=== PATIENT | male | born 1955 | race Caucasian/White ===

== ENCOUNTER → 2016-06-25 | Outpatient (CLI) | payer OTHER ==
[~2016-06-25] MED LIST: AMLODIPINE BESYL5 MG PO; BENAZEPRIL HCL40 MG PO; CALCIUM 600 +1 EAC1 PO; CASODEX50 MG PO; CLONIDINE HCL0.1 MG PO; FISH OIL 1,0001 EAC7 PO; FLOMAX0.4 MG PO; GLIPIZIDE10 MG PO; LO-DOSE ASPIRIN81 M2 PO; PRECOSE50 MG PO; SIMVASTATIN20 MG PO; TRADJENTA5 MG PO; TYLENOL WITH C1 EACH PO
[2016-06-25 09:22] LABS: HEMATOCRIT 24.6 % (38.0-50.0); MCH 31.5 PG (29.0-34.0); MCHC 34.1 G/DL (30.0-36.0); MCV 92.1 FL (86-99); MEAN PLAT.VOLUME 11.3 uM^3 (9.0-12.4); PLATELET COUNT 179 K/uL (156-360); RBC DIS.WIDTH-CV 16.6 % (11.8-14.6); RBC DIS.WIDTH-SD 52.7 % (39-53); RED BLOOD COUNT 2.67 M/uL (4.00-5.50)
[2016-06-25 09:23] LABS: WHITE BLOOD COUNT 4.2 K/uL (4.1-10.2)
[2016-06-25 09:24] LABS: EOSINOPHIL (%) 0.7 % (0-5); IMMATURE GRANULOCYTE COUNT 0.4 K/uL; LYMPHOCYTE COUNT 1.4 K/uL (1.0-2.8); MONOCYTE (%) 7.9 % (3-12); MONOCYTE COUNT 0.3 K/uL (0-0.8); NEUTROPHIL (%) 56.3 % (45-76); NEUTROPHIL COUNT 2.4 K/uL (1.8-6.4)
[2016-06-25 09:33] LABS: INTER. NORMALIZED RATIO 1.1; PROTHROMBIN TIME 10.7 (9.2-11.2); PTT 26.6 (25-32)
[2016-06-25 10:04] LABS: ANISOCYTOSIS 1+; HYPOCHROMASIA 1+; OVALOCYTES OCC; PLAT.SUFFICIENCY ADEQUATE; POLYCHROMASIA OCC; SCHISTOCYTES RARE; SMUDGE CELLS 0; SPHEROCYTES OCC; TEAR DROP CELLS 1+; USER ID SDF
[2016-07-04 08:07] LABS: Flow Clinical Information NOT PROVIDED; Flow Spec Viability 95; Flow Specimen Type BONE MARROW
[2016-07-04 08:08] LABS: Flow Number of Markers 22
== END | disposition home or self-care (01) ==
LOC: OPR 05-24 09:00 → EDSTATUS 09:00 → OPR 09:00
PROVIDERS: Internal Medicine Medical Oncology
PROC: 07DR3ZX Extraction of Iliac Bone Marrow, Percutaneous Approach, Diagnostic (ICD-10-PCS; principal; 2016-06-25)
DX: D64.9 Anemia, unspecified (principal); C61 Malignant neoplasm of prostate; Z92.3 Personal history of irradiation; Z79.82 Long term (current) use of aspirin; Z79.84 Long term (current) use of oral hypoglycemic drugs; Z87.891 Personal history of nicotine dependence; R60.0 Localized edema
CPT/HCPCS: 77012; 85025; 85610; 85730; 85999; 88184 90; 88185 90; 88189 90; 88291 90; J3010

== ENCOUNTER → 2016-11-21 | Outpatient (CLI) | payer OTHER ==
[~2016-11-21] VITALS: Ht 190.5 cm; Wt 106.8 kg
[~2016-11-21] MED LIST changes: +AMLODIPINE BESY10 MG PO; +LEVEMIR100 UNIT/2 SC
[2016-11-21 09:15] LABS: EOSINOPHIL (%) 0.6 % (0-5); HEMATOCRIT 24.7 % (38.0-50.0); IMMATURE GRANULOCYTE (%) 0.9 % (0.0-0.7); INSTRUMENT ABS NEUTROPHIL CT 1.8 K/uL; LYMPHOCYTE COUNT 1.1 K/uL (1.0-2.8); MCH 31.7 PG (29.0-34.0); MCHC 33.2 G/DL (30.0-36.0); MCV 95.4 FL (86-99); MEAN PLAT.VOLUME 11.4 uM^3 (9.0-12.4); MONOCYTE (%) 10.7 % (3-12); MONOCYTE COUNT 0.4 K/uL (0-0.8); NEUTROPHIL (%) 53.8 % (45-76); NEUTROPHIL COUNT 1.8 K/uL (1.8-6.4); PLATELET COUNT 204 K/uL (156-360); RBC DIS.WIDTH-CV 16.5 % (11.8-14.6); RBC DIS.WIDTH-SD 57.3 % (39-53); RED BLOOD COUNT 2.59 M/uL (4.00-5.50); WHITE BLOOD COUNT 3.4 K/uL (4.1-10.2)
[2016-11-21 09:24] LABS: INTER. NORMALIZED RATIO 1.1; PROTHROMBIN TIME 10.8 (9.2-11.2); PTT 27.7 (25-32)
[2016-11-21 09:42] LABS: POINT-OF-CARE METER ID UU14174212
[2016-11-25 10:12] LABS: Flow Number of Markers 22 (()); Flow Spec Viability 90 % (()); Flow Specimen Type BONE MARROW (())
== END | disposition home or self-care (01) ==
LOC: OPR 08:35 → EDSTATUS 09:00
PROVIDERS: Internal Medicine Medical Oncology
DX: D46.20 Refractory anemia with excess of blasts, unspecified (principal); D63.8 Anemia in other chronic diseases classified elsewhere; D64.9 Anemia, unspecified; C61 Malignant neoplasm of prostate; E78.5 Hyperlipidemia, unspecified; I10 Essential (primary) hypertension; E66.9 Obesity, unspecified; R16.1 Splenomegaly, not elsewhere classified; E11.9 Type 2 diabetes mellitus without complications; Z79.82 Long term (current) use of aspirin; Z87.891 Personal history of nicotine dependence; Z79.84 Long term (current) use of oral hypoglycemic drugs; Z79.4 Long term (current) use of insulin
CPT/HCPCS: 77012; 82948; 85025; 85610; 85730; 85999; 88184 90; 88185 90; 88189 90; 88271 90; 88275 90; 88291 90; J3010

== ENCOUNTER → 2017-03-07 | Outpatient (CLI) | payer OTHER ==
[~2017-03-07] MED LIST changes: +FOLIC ACID0.4 MG PO; +[UNRECOGNIZED DRUG - OTHER] IV
== END | disposition home or self-care (01) ==
LOC: CDC 08:11
DX: N13.30 Unspecified hydronephrosis (principal); I45.10 Unspecified right bundle-branch block
CPT/HCPCS: 93000

== ENCOUNTER → 2017-06-11 | Outpatient (CLI) | payer OTHER ==
[~2017-06-11] VITALS: Ht 190.5 cm; Wt 109.0 kg
[~2017-06-11] MED LIST changes: +OMEPRAZOLE20 MG PO; +PREDNISONE1 MG PO
[2017-06-11 16:04] VITALS: BP 162/70
[2017-06-11 16:29] VITALS: BP 157/70
[2017-06-11 16:42] VITALS: BP 141/61
[2017-06-11 16:46] VITALS: BP 149/63
[2017-06-11 17:50] VITALS: BP 134/62
[2017-06-11 18:33] VITALS: BP 140/62
== END | disposition home or self-care (01) ==
LOC: IVINF 15:43
DX: D46.20 Refractory anemia with excess of blasts, unspecified (principal)
CPT/HCPCS: 36430; 86920; 86999; P9016

== ENCOUNTER → 2017-06-27 | Outpatient (CLI) | payer OTHER ==
[~2017-06-27] MED LIST changes: +GLIPIZIDE XL10 MG PO; +PREDNISONE10 MG PO
[2017-06-27 10:57] LABS: BASOPHIL (%) 0.4 % (0-1); EOSINOPHIL (%) 0.4 % (0-5); HEMATOCRIT 17.9 % (38.0-50.0); IMMATURE GRANULOCYTE (%) 2.2 % (0.0-0.7); LYMPHOCYTE COUNT 0.8 K/uL (1.0-2.8); MCH 33.2 PG (29.0-34.0); MCHC 34.6 G/DL (30.0-36.0); MCV 95.7 FL (86-99); MONOCYTE (%) 15.2 % (3-12); MONOCYTE COUNT 0.4 K/uL (0-0.8); NEUTROPHIL (%) 51.8 % (45-76); NEUTROPHIL COUNT 1.4 K/uL (1.8-6.4); PLATELET COUNT 92 K/uL (156-360); RBC DIS.WIDTH-CV 15.9 % (11.8-14.6); RBC DIS.WIDTH-SD 55.7 % (39-53); RED BLOOD COUNT 1.87 M/uL (4.00-5.50); WHITE BLOOD COUNT 2.8 K/uL (4.1-10.2)
[2017-06-27 10:59] LABS: HEMOGLOBIN 6.2 G/DL (12.5-16.6)
[2017-06-29 17:17] LABS: NUMBER OF MARKERS 22; SPECIMEN TYPE BONE MARROW; SPECIMEN VIABILITY 94
== END | disposition home or self-care (01) ==
LOC: OPR 09:39 → EDSTATUS 10:00 → OPR 10:00
PROVIDERS: Internal Medicine Medical Oncology
DX: D59.5 Paroxysmal nocturnal hemoglobinuria [Marchiafava-Micheli] (principal); C61 Malignant neoplasm of prostate; D46.20 Refractory anemia with excess of blasts, unspecified; I10 Essential (primary) hypertension; E78.5 Hyperlipidemia, unspecified; E11.9 Type 2 diabetes mellitus without complications; Z79.4 Long term (current) use of insulin; Z79.82 Long term (current) use of aspirin
CPT/HCPCS: 77012; 82948; 85025 91; J3010

== ENCOUNTER 2017-07-05 16:26 | Emergency (ER) | payer OTHER ==
[~2017-07-05] VITALS: Ht 190.5 cm; Wt 107.2 kg
[2017-07-05 17:48] LABS: HEMATOCRIT 19.6 % (38.0-50.0); MCHC 33.7 G/DL (30.0-36.0); PLATELET COUNT 114 K/uL (156-360); RBC DIS.WIDTH-CV 14.8 % (11.8-14.6); RBC DIS.WIDTH-SD 49.1 % (39-53); RED BLOOD COUNT 2.13 M/uL (4.00-5.50); WHITE BLOOD COUNT 2.6 K/uL (4.1-10.2)
[2017-07-05 17:49] LABS: HEMOGLOBIN 6.6 G/DL (12.5-16.6)
[2017-07-05 17:52] LABS: CHLORIDE 104 mEq/L (99-109); SODIUM 136 mEq/L (136-147)
[2017-07-05 17:53] LABS: GLUCOSE 118 mg/dL (70-99)
[2017-07-05 17:57] LABS: CREATININE 1.5 mg/dL (0.6-1.3); GFR ESTIMATE (CALCULATED) 50 mL/min/ (58.99-99999)
[2017-07-05 17:58] LABS: UREA NITROGEN (BUN) 13 mg/dL (9-23)
[2017-07-05 18:23] LABS: ABS NEUTROPHIL COUNT 1.5; ANISOCYTOSIS 1+; EOSINOPHIL ABS CT 0; LYMPHOCYTES 34.2 % (15.0-45.0); MONOCYTES 8.1 % (0-9.0); PLAT.SUFFICIENCY DECREASED; POIKILOCYTOSIS 1+; SEG.NEUTROPHILS 57.7 % (46.0-76.0)
[2017-07-05 18:54] LABS: APPEARANCE CLEAR ((CLEAR)); BILIRUBIN NEGATIVE; BLOOD SMALL; COLOR YELLOW ((YELLOW)); GLUCOSE (STRIP) NEGATIVE; KETONES NEGATIVE; LEUKOCYTES NEGATIVE; NITRITE NEGATIVE; PROTEIN (STRIP) NEGATIVE; UROBILINOGEN 0.2 MG/DL (0.2-1.0)
[2017-07-05 18:59] LABS: BACTERIA RARE /HPF; EPITHELIAL CELLS RARE /HPF; MUCUS TRACE /LPF; RED BLOOD CELLS 0-5 /HPF (0-5); UCUL ADDED? NO; WHITE BLOOD CELLS 0-5 /HPF (0-5)
[2017-07-05] MEDS ORDERED: ZITHROMAX Z-PA250 MG PO (20:49)
[2017-07-05] MEDS ORDERED: ZITHROMAX250 MG PO (20:50)
[2017-07-05 21:36] VITALS: BP 114/52
[2017-07-05 21:47] VITALS: BP 116/47
[2017-07-05 22:30] VITALS: BP 103/59
[2017-07-05 23:44] VITALS: BP 133/68
[2017-07-05 23:55] VITALS: BP 133/68
== END 2017-07-06 | disposition home or self-care (01) ==
LOC: EME 16:26
PROVIDERS: Emergency Medicine
PROC: 30233N1 Transfusion of Nonautologous Red Blood Cells into Peripheral Vein, Percutaneous Approach (ICD-10-PCS; principal; 2017-07-05)
DX: D64.9 Anemia, unspecified (principal); R50.9 Fever, unspecified; E11.9 Type 2 diabetes mellitus without complications; I10 Essential (primary) hypertension; E78.5 Hyperlipidemia, unspecified; K21.9 Gastro-esophageal reflux disease without esophagitis; Z79.82 Long term (current) use of aspirin; Z87.891 Personal history of nicotine dependence; Z85.46 Personal history of malignant neoplasm of prostate
CPT/HCPCS: 71046; 80048; 81003; 83605; 85025; 86850; 86900; 86901; 86920; 87040; 87077; 87186; 87502; 87801; J0696; P9016

== ENCOUNTER 2017-07-07 20:22 | Inpatient (IN) | payer OTHER ==
[~2017-07-07] VITALS: Ht 190.5 cm; Wt 95.5 kg
[~2017-07-07 20:22] MED LIST changes: +ZITHROMAX Z-PA250 MG PO; +ZITHROMAX250 MG PO
[2017-07-07 21:15] LABS: CHLORIDE 105 mEq/L (99-109); POTASSIUM 4.1 mEq/L (3.7-5.4); SODIUM 136 mEq/L (136-147)
[2017-07-07 21:16] LABS: GLUCOSE 124 mg/dL (70-99)
[2017-07-07 21:20] LABS: CREATININE 1.5 mg/dL (0.6-1.3); GFR ESTIMATE (CALCULATED) 50 mL/min/ (58.99-99999)
[2017-07-07 21:21] LABS: UREA NITROGEN (BUN) 12 mg/dL (9-23)
[2017-07-07 21:29] LABS: HEMATOCRIT 18.9 % (38.0-50.0); HEMOGLOBIN 6.4 G/DL (12.5-16.6); MCH 30.5 PG (29.0-34.0); MCHC 33.9 G/DL (30.0-36.0); PLATELET COUNT 94 K/uL (156-360); RBC DIS.WIDTH-CV 15.2 % (11.8-14.6); RBC DIS.WIDTH-SD 49.6 % (39-53); WHITE BLOOD COUNT 1.5 K/uL (4.1-10.2)
[2017-07-08] VITALS (9 sets, daily range): BP systolic 118–152; BP diastolic 52–78
[2017-07-08 02:02] LABS: ALBUMIN 3.6 g/dL (3.2-4.8)
[2017-07-08 02:05] LABS: TOTAL PROTEIN 6.4 g/dL (6.4-8.3)
[2017-07-08] MEDS ORDERED: VITAMIN D-32000 UNI2 PO (02:05)
[2017-07-08 02:06] LABS: TOTAL BILIRUBIN 0.5 mg/dL (0.0-1.0)
[2017-07-08 02:07] LABS: ALKALINE PHOSPHATASE 60 IU/L (3-129)
[2017-07-08 02:10] LABS: AST (GOT) 18 IU/L (2-34); DIRECT BILIRUBIN 0.3 mg/dL (0.0-0.3)
[2017-07-08 02:11] LABS: ALT (GPT) 13 IU/L (3-49)
[2017-07-08 03:31] LABS: APPEARANCE CLEAR ((CLEAR)); BILIRUBIN NEGATIVE; BLOOD NEGATIVE; COLOR YELLOW ((YELLOW)); GLUCOSE (STRIP) NEGATIVE; KETONES NEGATIVE; LEUKOCYTES NEGATIVE; NITRITE NEGATIVE; PROTEIN (STRIP) NEGATIVE; SPECIFIC GRAVITY 1.013 (1.000-1.030); UCUL ADDED? NO; UROBILINOGEN 0.2 MG/DL (0.2-1.0)
[2017-07-08 07:21] LABS: INTER. NORMALIZED RATIO 1.2
[2017-07-08 07:24] LABS: PTT 34.4 SEC (25-37)
[2017-07-08 07:38] LABS: MCH 30.6 PG (29.0-34.0); MCHC 33.5 G/DL (30.0-36.0); MCV 91.4 FL (86-99); PLATELET COUNT 72 K/uL (156-360); RBC DIS.WIDTH-SD 49.9 % (39-53); RED BLOOD COUNT 1.86 M/uL (4.00-5.50)
[2017-07-08 07:39] LABS: CHLORIDE 104 MEQ/L (99-109); CREATININE 1.5 MG/DL (0.6-1.3); GFR ESTIMATE (CALCULATED) 50 mL/min/ (58.99-99999); POTASSIUM 4.5 MEQ/L (3.7-5.4); SODIUM 136 MEQ/L (136-147); UREA NITROGEN (BUN) 13 mg/dL (9-23)
[2017-07-08 07:41] LABS: GLUCOSE 218 mg/dL (70-99); HEMOGLOBIN 5.7 G/DL (12.5-16.6); WHITE BLOOD COUNT 0.8 K/uL (4.1-10.2)
[2017-07-08 10:53] LABS: ABS NEUTROPHIL COUNT 0.5; ANISOCYTOSIS 1+; ATYPICAL LYMPHOCYTE 1.8 %; BASOPHILS 0.9 %; EOSINOPHIL ABS CT 0; GIANT PLATELETS 1+; HYPOCHROMASIA 1+; LYMPHOCYTES 33.9 % (15.0-45.0); MONOCYTES 4.5 % (0-9.0); OVALOCYTES 1+; PLAT.SUFFICIENCY DECREASED; POIKILOCYTOSIS 2+; SEG.NEUTROPHILS 54.9 % (46.0-76.0); TEAR DROP CELLS 1+
[2017-07-08 22:11] LABS: INTER. NORMALIZED RATIO 1.2
[2017-07-08 22:14] LABS: PTT 31.2 SEC (25-37)
[2017-07-08 22:22] LABS: ALBUMIN 3.3 G/DL (3.2-4.8); ALKALINE PHOSPHATASE 56 IU/L (3-129); ALT (GPT) 9 IU/L (3-49); CHLORIDE 104 MEQ/L (99-109); CREATININE 1.3 MG/DL (0.6-1.3); DIRECT BILIRUBIN 0.2 mg/dL (0.0-0.3); GFR ESTIMATE (CALCULATED) > 59 mL/min/ (58.99-99999); GLUCOSE 212 mg/dL (70-99); POTASSIUM 4.4 MEQ/L (3.7-5.4); SODIUM 135 MEQ/L (136-147); TOTAL PROTEIN 6.2 G/DL (6.4-8.3); UREA NITROGEN (BUN) 17 mg/dL (9-23)
[2017-07-08 22:35] LABS: AST (GOT) 12 IU/L (2-34); LACTATE DEHYDROGENASE 321 IU/L (20-246); TOTAL BILIRUBIN 0.7 MG/DL (0.0-1.0)
[2017-07-09 00:14] VITALS: BP 148/70
[2017-07-09 02:22] LABS: HEMATOCRIT 21.1 % (38.0-50.0); HEMOGLOBIN 7.3 G/DL (12.5-16.6); MCH 31.1 PG (29.0-34.0); MCHC 34.6 G/DL (30.0-36.0); MCV 89.8 FL (86-99); PLATELET COUNT 82 K/uL (156-360); RBC DIS.WIDTH-CV 14.4 % (11.8-14.6); RBC DIS.WIDTH-SD 46.5 % (39-53)
[2017-07-09 02:23] LABS: RED BLOOD COUNT 2.35 M/uL (4.00-5.50); WHITE BLOOD COUNT 0.8 K/uL (4.1-10.2)
[2017-07-09 03:22] LABS: BASOPHIL (%) 0 % (0-1); EOSINOPHIL (%) 0 % (0-5); IMMATURE GRANULOCYTE (%) 1.2 % (0.0-0.7); LYMPHOCYTE (%) 50.6 % (15-42); LYMPHOCYTE COUNT 0.4 K/uL (1.0-2.8); MONOCYTE (%) 19.3 % (3-12); MONOCYTE COUNT 0.2 K/uL (0-0.8); NEUTROPHIL (%) 28.9 % (45-76); NEUTROPHIL COUNT 0.2 K/uL (1.8-6.4); PLAT.SUFFICIENCY DECREASED
[2017-07-09 04:30] VITALS: BP 143/68
[2017-07-09 08:34] VITALS: BP 144/68
[2017-07-09 10:15] LABS: HEMATOCRIT 23.7 % (38.0-50.0); HEMOGLOBIN 7.9 G/DL (12.5-16.6); MCHC 33.3 G/DL (30.0-36.0); MCV 90.1 FL (86-99); PLATELET COUNT 92 K/uL (156-360); RBC DIS.WIDTH-CV 14.5 % (11.8-14.6); RBC DIS.WIDTH-SD 46.9 % (39-53); RED BLOOD COUNT 2.63 M/uL (4.00-5.50)
[2017-07-09 10:18] LABS: ALBUMIN 3.4 G/DL (3.2-4.8); ALKALINE PHOSPHATASE 59 IU/L (3-129); ALT (GPT) 11 IU/L (3-49); AST (GOT) 16 IU/L (2-34); CHLORIDE 106 MEQ/L (99-109); CREATININE 1.3 MG/DL (0.6-1.3); GFR ESTIMATE (CALCULATED) > 59 mL/min/ (58.99-99999); GLUCOSE 203 mg/dL (70-99); POTASSIUM 4.3 MEQ/L (3.7-5.4); SODIUM 141 MEQ/L (136-147); TOTAL BILIRUBIN 0.8 MG/DL (0.0-1.0); TOTAL PROTEIN 5.9 G/DL (6.4-8.3); UREA NITROGEN (BUN) 16 mg/dL (9-23)
[2017-07-09 10:20] LABS: WHITE BLOOD COUNT 1.1 K/uL (4.1-10.2)
[2017-07-09 16:23] VITALS: BP 150/68
[2017-07-09 18:53] VITALS: BP 144/67
[2017-07-09 20:25] LABS: C DIFF TOXIN NEGATIVE (NEGATIVE)
[2017-07-10] VITALS (13 sets, daily range): BP systolic 128–164; BP diastolic 63–76
[2017-07-10 06:27] LABS: ALBUMIN 3.2 G/DL (3.2-4.8); ALKALINE PHOSPHATASE 61 IU/L (3-129); ALT (GPT) 9 IU/L (3-49); AST (GOT) 14 IU/L (2-34); CHLORIDE 107 MEQ/L (99-109); CREATININE 1.3 MG/DL (0.6-1.3); GFR ESTIMATE (CALCULATED) > 59 mL/min/ (58.99-99999); POTASSIUM 3.9 MEQ/L (3.7-5.4); SODIUM 141 MEQ/L (136-147); TOTAL BILIRUBIN 0.7 MG/DL (0.0-1.0); TOTAL PROTEIN 5.5 G/DL (6.4-8.3); UREA NITROGEN (BUN) 18 mg/dL (9-23)
[2017-07-10 06:28] LABS: GLUCOSE 95 mg/dL (70-99)
[2017-07-10 06:39] LABS: HEMATOCRIT 20.7 % (38.0-50.0); MCH 30.3 PG (29.0-34.0); MCHC 33.8 G/DL (30.0-36.0); MCV 89.6 FL (86-99); PLATELET COUNT 89 K/uL (156-360); RBC DIS.WIDTH-CV 14.3 % (11.8-14.6); RBC DIS.WIDTH-SD 46.4 % (39-53); RED BLOOD COUNT 2.31 M/uL (4.00-5.50)
[2017-07-10 07:08] LABS: WHITE BLOOD COUNT 1.3 K/uL (4.1-10.2)
[2017-07-11 04:20] VITALS: BP 159/74
[2017-07-11 06:44] LABS: ALBUMIN 3.2 G/DL (3.2-4.8); ALKALINE PHOSPHATASE 62 IU/L (3-129); ALT (GPT) 14 IU/L (3-49); AST (GOT) 20 IU/L (2-34); CHLORIDE 106 MEQ/L (99-109); CREATININE 1.3 MG/DL (0.6-1.3); GFR ESTIMATE (CALCULATED) > 59 mL/min/ (58.99-99999); GLUCOSE 82 mg/dL (70-99); POTASSIUM 3.6 MEQ/L (3.7-5.4); SODIUM 142 MEQ/L (136-147); TOTAL PROTEIN 5.4 G/DL (6.4-8.3); UREA NITROGEN (BUN) 14 mg/dL (9-23)
[2017-07-11 06:48] LABS: TOTAL BILIRUBIN 0.9 MG/DL (0.0-1.0)
[2017-07-11 07:15] VITALS: BP 146/67
[2017-07-11 07:20] LABS: HEMATOCRIT 23.7 % (38.0-50.0); HEMOGLOBIN 8.1 G/DL (12.5-16.6); MCH 30.2 PG (29.0-34.0); MCHC 34.2 G/DL (30.0-36.0); MCV 88.4 FL (86-99); PLATELET COUNT 95 K/uL (156-360); RBC DIS.WIDTH-CV 14.1 % (11.8-14.6); RBC DIS.WIDTH-SD 45.3 % (39-53); RED BLOOD COUNT 2.68 M/uL (4.00-5.50)
[2017-07-11 07:28] LABS: WHITE BLOOD COUNT 1.5 K/uL (4.1-10.2)
[2017-07-11 11:20] VITALS: BP 168/78
[2017-07-11] MEDS ORDERED: AMOXICILLIN875 MG PO (12:55)
== END 2017-07-11 15:40 | disposition home or self-care (01) | DRG 872 ==
LOC: EME 20:22 → 5EAST 07-08 01:16 → EDOF 07-08 01:16 → ENRESERV 07-08 01:17 → 5EAST 07-08 16:17
PROVIDERS: Emergency Medicine; Hospitalist; Internal Medicine; Internal Medicine Infectious Disease; Internal Medicine Medical Oncology
PROC: 30233N1 Transfusion of Nonautologous Red Blood Cells into Peripheral Vein, Percutaneous Approach (ICD-10-PCS; principal; 2017-07-08)
DX: A41.81 Sepsis due to Enterococcus (principal); D61.818 Other pancytopenia; N13.30 Unspecified hydronephrosis; N39.0 Urinary tract infection, site not specified; I10 Essential (primary) hypertension; E78.5 Hyperlipidemia, unspecified; E11.9 Type 2 diabetes mellitus without complications; K21.9 Gastro-esophageal reflux disease without esophagitis; E66.9 Obesity, unspecified; D59.5 Paroxysmal nocturnal hemoglobinuria [Marchiafava-Micheli]; C61 Malignant neoplasm of prostate; D46.9 Myelodysplastic syndrome, unspecified; N13.5 Crossing vessel and stricture of ureter without hydronephrosis; N35.9 Urethral stricture, unspecified; Z92.3 Personal history of irradiation; Z87.891 Personal history of nicotine dependence; Z87.440 Personal history of urinary (tract) infections; Z85.51 Personal history of malignant neoplasm of bladder; Z79.84 Long term (current) use of oral hypoglycemic drugs; Z80.0 Family history of malignant neoplasm of digestive organs
CPT/HCPCS: 71046; 76770; 80048; 80053; 80076; 81003; 82248; 82948; 83010 90; 83605; 83615; 85007; 85025; 85027; 85610; 85730; 86850; 86900; 86901; 86905; 86920; 87040; 87077; 87186; 87493; 87502; 87801; 93306; 99281; 99285; J0290; J0696; J1720; J1815; J7030; J7050; J7512; P9016

== ENCOUNTER 2017-11-03 13:23 | Day surgery (SDC) | payer OTHER ==
[~2017-11-03] VITALS: Ht 188 cm; Wt 100.7 kg
[~2017-11-03 13:23] MED LIST changes: +AMOXICILLIN875 MG PO; +VITAMIN D-32000 UNI2 PO
[2017-11-06] MEDS ORDERED: XTANDI40 MG PO (08:35)
[2017-11-06] MEDS ORDERED: [UNRECOGNIZED DRUG - OTHER] IV (08:45)
== END 2017-11-03 16:30 | disposition home or self-care (01) ==
LOC: CATH 13:23
PROVIDERS: Surgery
DX: Z45.2 Encounter for adjustment and management of vascular access device (principal); I87.8 Other specified disorders of veins; C61 Malignant neoplasm of prostate; D64.9 Anemia, unspecified; I12.9 Hypertensive chronic kidney disease with stage 1 through stage 4 chronic kidney disease, or unspecified chronic kidney disease; E11.22 Type 2 diabetes mellitus with diabetic chronic kidney disease; N18.9 Chronic kidney disease, unspecified; Z79.4 Long term (current) use of insulin; Z87.891 Personal history of nicotine dependence; Z79.82 Long term (current) use of aspirin
CPT/HCPCS: 82948; C1788; C1894; J0690; J1644; J2250; J3010; S0020

== ENCOUNTER 2017-12-31 16:09 | Inpatient (IN) | payer OTHER ==
[2017-12-30 10:29] LABS: FASTING STATUS NONFASTING
[2017-12-30 11:30] LABS: HEMATOCRIT 15.1 % (38.0-50.0); MCH 30.9 PG (29.0-34.0); MCHC 33.1 G/DL (30.0-36.0); MCV 93.2 FL (86-99); RBC DIS.WIDTH-CV 14.3 % (11.8-14.6); WHITE BLOOD COUNT 2.9 K/uL (4.1-10.2)
[2017-12-30 11:31] LABS: PLATELET COUNT 162 K/uL (156-360); RED BLOOD COUNT 1.62 M/uL (4.00-5.50)
[2017-12-30 11:53] LABS: ABSOLUTE RETICULOCYTE CT. 0.01 M/uL (0.02-0.08); ALBUMIN 3.3 G/DL (3.2-4.8); ALKALINE PHOSPHATASE 61 IU/L (3-129); ALT (GPT) 9 IU/L (3-49); ANISOCYTOSIS 1+; AST (GOT) 14 IU/L (2-34); BASOPHIL (%) 0.3 % (0-1); CHLORIDE 103 MEQ/L (99-109); CREATININE 1.8 MG/DL (0.6-1.3); EOSINOPHIL (%) 0 % (0-5); GFR ESTIMATE (CALCULATED) 41 mL/min/ (58.99-99999); GLUCOSE 147 mg/dL (70-99); IMM.RETIC FRACTION 13.8 % (3-19); IMMATURE GRANULOCYTE (%) 3.1 % (0.0-0.7); LYMPHOCYTE (%) 15.4 % (15-42); LYMPHOCYTE COUNT 0.4 K/uL (1.0-2.8); MICROCYTOSIS 1+; MONOCYTE (%) 11.5 % (3-12); MONOCYTE COUNT 0.3 K/uL (0-0.8); NEUTROPHIL (%) 69.7 % (45-76); POTASSIUM 4.5 MEQ/L (3.7-5.4); SODIUM 136 MEQ/L (136-147); TOTAL BILIRUBIN 0.9 MG/DL (0.0-1.0); TOTAL PROTEIN 5.8 G/DL (6.4-8.3); UREA NITROGEN (BUN) 36 mg/dL (9-23)
[2017-12-30 12:04] LABS: RETICULOCYTE COUNT 0.4 % (0.5-1.8)
[2017-12-30 12:13] LABS: LACTATE DEHYDROGENASE 234 IU/L (20-246)
[~2017-12-31] VITALS: Ht 188 cm; Wt 95.5 kg
[~2017-12-31 16:09] MED LIST changes: -AMLODIPINE BESY10 MG PO; -BENAZEPRIL HCL40 MG PO; -CLONIDINE HCL0.1 MG PO; -FLOMAX0.4 MG PO; -FOLIC ACID0.4 MG PO; -GLIPIZIDE10 MG PO; -LEVEMIR100 UNIT/2 SC; -OMEPRAZOLE20 MG PO; -PRECOSE50 MG PO; -SIMVASTATIN20 MG PO; -TRADJENTA5 MG PO; -VITAMIN D-32000 UNI2 PO
[2017-12-31 17:53] LABS: APPEARANCE SL.HAZY ((CLEAR)); BILIRUBIN NEGATIVE; BLOOD SMALL; COLOR YELLOW ((YELLOW)); GLUCOSE (STRIP) NEGATIVE; KETONES NEGATIVE; LEUKOCYTES NEGATIVE; NITRITE NEGATIVE; PROTEIN (STRIP) 30; SPECIFIC GRAVITY 1.013 (1.000-1.030); UROBILINOGEN 0.2 MG/DL (0.2-1.0)
[2017-12-31 18:00] LABS: BACTERIA RARE /HPF; EPITHELIAL CELLS RARE /HPF; HYALINE CASTS 0-5 /LPF; MUCUS TRACE /LPF; UCUL ADDED? NO; WHITE BLOOD CELLS 0-5 /HPF (0-5)
[2017-12-31 18:13] LABS: HEMATOCRIT 17.9 % (38.0-50.0); HEMOGLOBIN 6.3 G/DL (12.5-16.6); MCH 31.5 PG (29.0-34.0); MCHC 35.2 G/DL (30.0-36.0); MCV 89.5 FL (86-99); PLATELET COUNT 171 K/uL (156-360); RBC DIS.WIDTH-CV 14.1 % (11.8-14.6); WHITE BLOOD COUNT 1.5 K/uL (4.1-10.2)
[2017-12-31 18:15] LABS: ALBUMIN 3.5 g/dL (3.2-4.8); CHLORIDE 102 mEq/L (99-109); POTASSIUM 4.8 mEq/L (3.7-5.4); SODIUM 131 mEq/L (136-147)
[2017-12-31 18:17] LABS: TOTAL PROTEIN 6.4 g/dL (6.4-8.3)
[2017-12-31 18:21] LABS: ALKALINE PHOSPHATASE 70 IU/L (3-129); CREATININE 1.8 mg/dL (0.6-1.3); GFR ESTIMATE (CALCULATED) 41 mL/min/ (58.99-99999)
[2017-12-31 18:22] LABS: UREA NITROGEN (BUN) 38 mg/dL (9-23)
[2017-12-31 18:23] LABS: AST (GOT) 19 IU/L (2-34)
[2017-12-31 18:24] LABS: ALT (GPT) 14 IU/L (3-49)
[2017-12-31 18:26] LABS: GLUCOSE 242 mg/dL (70-99)
[2017-12-31 20:30] VITALS: BP 112/52
[2017-12-31 20:38] LABS: ABS NEUTROPHIL COUNT 1.2; ANISOCYTOSIS NONE SEEN; BAND NEUTROPHILS 4.4 % (0-8.0); EOSINOPHIL ABS CT 0; MONOCYTES 7.9 % (0-9.0); PLAT.SUFFICIENCY ADEQUATE; POIKILOCYTOSIS 1+
[2017-12-31 20:46] VITALS: BP 122/51
[2017-12-31 20:53] LABS: LYMPHOCYTES 10.5 % (15.0-45.0); SEG.NEUTROPHILS 77.2 % (46.0-76.0)
[2017-12-31 22:24] VITALS: BP 116/58
[2018-01-01] VITALS (15 sets, daily range): BP systolic 94–138; BP diastolic 46–67
[2018-01-01] MEDS ORDERED: CLONIDINE HCL0.1 MG PO (02:16)
[2018-01-01] MEDS ORDERED: FLOMAX0.4 MG PO (02:17)
[2018-01-01] MEDS ORDERED: BENAZEPRIL HCL40 MG PO (02:17)
[2018-01-01] MEDS ORDERED: GLIPIZIDE XL10 MG PO (02:17)
[2018-01-01] MEDS ORDERED: SIMVASTATIN20 MG PO (02:17)
[2018-01-01] MEDS ORDERED: PRECOSE50 MG PO (02:17)
[2018-01-01] MEDS ORDERED: XTANDI40 MG PO (02:18)
[2018-01-01] MEDS ORDERED: TRADJENTA5 MG PO (02:18)
[2018-01-01] MEDS ORDERED: FOLIC ACID1 MG PO (02:18)
[2018-01-01] MEDS ORDERED: VITAMIN D-32000 UNI2 PO (02:18)
[2018-01-01] MEDS ORDERED: AMLODIPINE BESY10 MG PO (02:18)
[2018-01-01] MEDS ORDERED: OMEPRAZOLE20 MG PO (02:18)
[2018-01-01] MEDS ORDERED: [UNRECOGNIZED DRUG - OTHER] IV (02:18)
[2018-01-01 08:03] LABS: HEMATOCRIT 20.2 % (38.0-50.0); MCH 30.2 PG (29.0-34.0); MCHC 33.7 G/DL (30.0-36.0); MCV 89.8 FL (86-99); PLATELET COUNT 167 K/uL (156-360); RBC DIS.WIDTH-CV 14.6 % (11.8-14.6); RBC DIS.WIDTH-SD 47.7 % (39-53); RED BLOOD COUNT 2.25 M/uL (4.00-5.50)
[2018-01-01 08:04] LABS: HEMOGLOBIN 6.8 G/DL (12.5-16.6); WHITE BLOOD COUNT 1.8 K/uL (4.1-10.2)
[2018-01-01 08:30] LABS: CHLORIDE 103 MEQ/L (99-109); GFR ESTIMATE (CALCULATED) 36 mL/min/ (58.99-99999); GLUCOSE 138 mg/dL (70-99); POTASSIUM 4.3 MEQ/L (3.7-5.4); SODIUM 135 MEQ/L (136-147); UREA NITROGEN (BUN) 42 mg/dL (9-23)
[2018-01-01 11:33] LABS: LACTATE DEHYDROGENASE 250 IU/L (20-246)
[2018-01-01 20:50] LABS: BASOPHIL (%) 0.8 % (0-1); EOSINOPHIL (%) 0 % (0-5); HEMATOCRIT 20.3 % (38.0-50.0); IMMATURE GRANULOCYTE (%) 3.2 % (0.0-0.7); LYMPHOCYTE (%) 31.7 % (15-42); LYMPHOCYTE COUNT 0.4 K/uL (1.0-2.8); MCH 30.3 PG (29.0-34.0); MONOCYTE (%) 9.5 % (3-12); MONOCYTE COUNT 0.1 K/uL (0-0.8); NEUTROPHIL (%) 54.8 % (45-76); NEUTROPHIL COUNT 0.7 K/uL (1.8-6.4); PLATELET COUNT 126 K/uL (156-360); RBC DIS.WIDTH-CV 14.6 % (11.8-14.6); RBC DIS.WIDTH-SD 46.8 % (39-53); RED BLOOD COUNT 2.28 M/uL (4.00-5.50)
[2018-01-01 20:54] LABS: HEMOGLOBIN 6.9 G/DL (12.5-16.6); WHITE BLOOD COUNT 1.3 K/uL (4.1-10.2)
[2018-01-02] VITALS (12 sets, daily range): BP systolic 118–177; BP diastolic 64–78
[2018-01-02 03:55] LABS: HEMATOCRIT 23.8 % (38.0-50.0); HEMOGLOBIN 8.3 G/DL (12.5-16.6); MCH 30.5 PG (29.0-34.0); MCHC 34.9 G/DL (30.0-36.0); MCV 87.5 FL (86-99); PLATELET COUNT 125 K/uL (156-360); RBC DIS.WIDTH-CV 14.3 % (11.8-14.6); RBC DIS.WIDTH-SD 45.1 % (39-53); RED BLOOD COUNT 2.72 M/uL (4.00-5.50)
[2018-01-02 03:56] LABS: WHITE BLOOD COUNT 1.2 K/uL (4.1-10.2)
[2018-01-02 04:41] LABS: ABS NEUTROPHIL COUNT 0.6; ANISOCYTOSIS NONE SEEN; ATYPICAL LYMPHOCYTE 4.4 %; BURR CELLS 1+; EOSINOPHIL ABS CT 0; GIANT PLATELETS 3+; MONOCYTES 6.1 % (0-9.0); OVALOCYTES 1+; PLAT.SUFFICIENCY DECREASED; POIKILOCYTOSIS 2+; TEAR DROP CELLS 1+; TOX.VACUOLIZATION 1+; TOXIC GRANULATION 1+
[2018-01-02 05:07] LABS: LYMPHOCYTES 40.4 % (15.0-45.0); SEG.NEUTROPHILS 49.1 % (46.0-76.0)
[2018-01-02 07:17] LABS: C DIFF TOXIN POSITIVE (NEGATIVE)
[2018-01-02 12:04] LABS: HEMATOCRIT 23.6 % (38.0-50.0); HEMOGLOBIN 8.3 G/DL (12.5-16.6); MCHC 35.2 G/DL (30.0-36.0); MCV 88.1 FL (86-99); PLATELET COUNT 106 K/uL (156-360); RBC DIS.WIDTH-CV 14.5 % (11.8-14.6); RBC DIS.WIDTH-SD 46.6 % (39-53); RED BLOOD COUNT 2.68 M/uL (4.00-5.50)
[2018-01-02 12:05] LABS: WHITE BLOOD COUNT 0.9 K/uL (4.1-10.2)
[2018-01-02 13:11] LABS: ABS NEUTROPHIL COUNT 0.5; BURR CELLS 1+; EOSINOPHIL ABS CT 0; GIANT PLATELETS 1+; PLAT.SUFFICIENCY DECREASED; POIKILOCYTOSIS 1+
[2018-01-02] MEDS ORDERED: LEVEMIR100 UNIT/2 SQ (15:25)
[2018-01-02] MEDS ORDERED: ONDANSETRON HCL8 MG PO (15:25)
[2018-01-02] MEDS ORDERED: CIPROFLOXACIN500 M1 PO (15:26)
[2018-01-02] MEDS ORDERED: PROCHLORPERAZIN10 MG PO (15:27)
[2018-01-02 20:24] LABS: BASOPHIL (%) 1.2 % (0-1); EOSINOPHIL (%) 0 % (0-5); HEMATOCRIT 24.4 % (38.0-50.0); HEMOGLOBIN 8.2 G/DL (12.5-16.6); IMMATURE GRANULOCYTE (%) 1.2 % (0.0-0.7); LYMPHOCYTE (%) 41.7 % (15-42); LYMPHOCYTE COUNT 0.4 K/uL (1.0-2.8); MCH 29.3 PG (29.0-34.0); MCHC 33.6 G/DL (30.0-36.0); MCV 87.1 FL (86-99); MONOCYTE (%) 8.3 % (3-12); MONOCYTE COUNT 0.1 K/uL (0-0.8); NEUTROPHIL (%) 47.6 % (45-76); NEUTROPHIL COUNT 0.4 K/uL (1.8-6.4); PLATELET COUNT 116 K/uL (156-360); RBC DIS.WIDTH-CV 14.3 % (11.8-14.6); RBC DIS.WIDTH-SD 45.8 % (39-53)
[2018-01-02 20:28] LABS: WHITE BLOOD COUNT 0.8 K/uL (4.1-10.2)
[2018-01-03 03:30] LABS: HEMOGLOBIN 8.3 G/DL (12.5-16.6); MCH 30.5 PG (29.0-34.0); MCHC 34.6 G/DL (30.0-36.0); MCV 88.2 FL (86-99); PLATELET COUNT 98 K/uL (156-360); RBC DIS.WIDTH-CV 14.3 % (11.8-14.6); RBC DIS.WIDTH-SD 45.9 % (39-53); RED BLOOD COUNT 2.72 M/uL (4.00-5.50)
[2018-01-03 03:31] LABS: WHITE BLOOD COUNT 0.9 K/uL (4.1-10.2)
[2018-01-03 04:51] VITALS: BP 145/67
[2018-01-03 05:20] LABS: ABS NEUTROPHIL COUNT 0.4; ANISOCYTOSIS NONE SEEN; ATYPICAL LYMPHOCYTE 1.7 %; BASOPHILS 0.9 %; BURR CELLS 2+; EOSINOPHIL ABS CT 0; EOSINOPHILS 0.9 % (0-5.0); GIANT PLATELETS 2+; LYMPHOCYTES 46.5 % (15.0-45.0); MONOCYTES 5.2 % (0-9.0); OVALOCYTES 1+; PLAT.SUFFICIENCY DECREASED; POIKILOCYTOSIS 2+; SEG.NEUTROPHILS 44.8 % (46.0-76.0); TOX.VACUOLIZATION 2+
[2018-01-03 08:35] VITALS: BP 142/63
[2018-01-03 10:44] VITALS: BP 132/61
[2018-01-03 12:25] LABS: HEMATOCRIT 29.7 % (38.0-50.0); HEMOGLOBIN 9.7 G/DL (12.5-16.6); MCH 30.6 PG (29.0-34.0); MCHC 32.7 G/DL (30.0-36.0); PLATELET COUNT 84 K/uL (156-360); RBC DIS.WIDTH-CV 14.6 % (11.8-14.6); RBC DIS.WIDTH-SD 50.2 % (39-53); RED BLOOD COUNT 3.17 M/uL (4.00-5.50)
[2018-01-03 12:28] LABS: MCV 93.7 FL (86-99)
[2018-01-03 12:57] LABS: ABS NEUTROPHIL COUNT 0.3; ANISOCYTOSIS NONE SEEN; BAND NEUTROPHILS 1.9 % (0-8.0); BURR CELLS 1+; EOSINOPHIL ABS CT 0; EOSINOPHILS 0.9 % (0-5.0); LYMPHOCYTES 59.3 % (15.0-45.0); MONOCYTES 14.8 % (0-9.0); OVALOCYTES 1+; PLAT.SUFFICIENCY DECREASED; POIKILOCYTOSIS 1+
[2018-01-03 13:54] LABS: SEG.NEUTROPHILS 23.1 % (46.0-76.0)
[2018-01-03 15:25] VITALS: BP 130/58
[2018-01-03 20:02] VITALS: BP 159/70
[2018-01-03 20:12] LABS: ANISOCYTOSIS 1+; BURR CELLS 1+; MICROCYTOSIS 1+; OVALOCYTES 1+; PLAT.SUFFICIENCY DECREASED; POIKILOCYTOSIS 1+
[2018-01-03 20:13] LABS: ABS NEUTROPHIL COUNT 0.3; BAND NEUTROPHILS 8.9 % (0-8.0); EOSINOPHIL ABS CT 0; HEMATOCRIT 23.3 % (38.0-50.0); HEMOGLOBIN 7.9 G/DL (12.5-16.6); LYMPHOCYTES 55.4 % (15.0-45.0); MCH 30.3 PG (29.0-34.0); MCHC 33.9 G/DL (30.0-36.0); MCV 89.3 FL (86-99); PLATELET COUNT 91 K/uL (156-360); RBC DIS.WIDTH-CV 14.4 % (11.8-14.6); RBC DIS.WIDTH-SD 46.7 % (39-53); RED BLOOD COUNT 2.61 M/uL (4.00-5.50); SEG.NEUTROPHILS 30.7 % (46.0-76.0); WHITE BLOOD COUNT 0.7 K/uL (4.1-10.2)
[2018-01-03 23:54] VITALS: BP 146/67
[2018-01-04 08:00] VITALS: BP 144/67
[2018-01-04] MEDS ORDERED: VANCOCIN HCL125 MG PO (09:44)
== END 2018-01-04 13:51 | disposition home or self-care (01) | DRG 872 ==
LOC: EME 16:09 → 3EAST 20:25 → EDOF 20:25 → 3EAST 20:25 → CANRESERV 20:29 → ENRESERV 20:29 → 3EAST 21:57
PROVIDERS: Emergency Medicine; Hospitalist; Internal Medicine Medical Oncology
PROC: 30233N1 Transfusion of Nonautologous Red Blood Cells into Peripheral Vein, Percutaneous Approach (ICD-10-PCS; principal; 2017-12-31)
DX: A41.81 Sepsis due to Enterococcus (principal); A04.72 Enterocolitis due to Clostridium difficile, not specified as recurrent; C61 Malignant neoplasm of prostate; C79.51 Secondary malignant neoplasm of bone; D61.818 Other pancytopenia; D46.4 Refractory anemia, unspecified; D59.5 Paroxysmal nocturnal hemoglobinuria [Marchiafava-Micheli]; E11.22 Type 2 diabetes mellitus with diabetic chronic kidney disease; I12.9 Hypertensive chronic kidney disease with stage 1 through stage 4 chronic kidney disease, or unspecified chronic kidney disease; N18.3 Chronic kidney disease, stage 3 (moderate); E78.5 Hyperlipidemia, unspecified; K21.9 Gastro-esophageal reflux disease without esophagitis; N13.39 Other hydronephrosis; R50.81 Fever presenting with conditions classified elsewhere; D70.9 Neutropenia, unspecified; Z87.891 Personal history of nicotine dependence; R53.83 Other fatigue
CPT/HCPCS: 71046; 74176; 80048; 80053; 81003; 82948; 83010 90; 83605; 83615; 85007; 85025; 85025 91; 85027; 85046; 86078; 86140; 86850; 86900; 86901; 86920; 86999; 87040; 87077; 87186; 87493; 87801; 93306; 99281; 99285; J0290; J0692; J1650; J1815; J3370; J7030; J7050; P9016

== ENCOUNTER → 2018-02-06 | Outpatient (CLI) | payer OTHER ==
[~2018-02-06] VITALS: Ht 188 cm; Wt 93.0 kg
[~2018-02-06] MED LIST changes: +AMLODIPINE BESY10 MG PO; +AMPICILLIN SODIU1 GM IV; +BENAZEPRIL HCL40 MG PO; +CIPROFLOXACIN500 M1 PO; +CLONIDINE HCL0.1 MG PO; +COMPAZINE10 MG PO; +FLOMAX0.4 MG PO; +FOLIC ACID1 MG PO; +LEVEMIR100 UNIT/2 SQ; +MOTRIN IB200 MG PO; +ONDANSETRON HCL8 MG PO; +PRECOSE50 MG PO; +PRILOSEC20 MG PO; +PROCHLORPERAZIN10 MG PO; +SIMVASTATIN20 MG PO; +TRADJENTA5 MG PO; +TYLENOL EXTRA500 MG PO; +VANCOCIN HCL125 MG PO; +VITAMIN D-32000 UNI2 PO; +XTANDI40 MG PO; +ZOFRAN8 MG PO
[2018-02-06 10:14] LABS: HEMATOCRIT 21.8 % (38.0-50.0); HEMOGLOBIN 7.4 G/DL (12.5-16.6); MCH 30.3 PG (29.0-34.0); MCHC 33.9 G/DL (30.0-36.0); MCV 89.3 FL (86-99); PLATELET COUNT 72 K/uL (156-360); RBC DIS.WIDTH-CV 14.2 % (11.8-14.6); RBC DIS.WIDTH-SD 46.1 % (39-53)
[2018-02-06 10:17] LABS: RED BLOOD COUNT 2.44 M/uL (4.00-5.50); WHITE BLOOD COUNT 1.1 K/uL (4.1-10.2)
== END | disposition home or self-care (01) ==
LOC: AMB 09:12
PROVIDERS: Anesthesiology; Internal Medicine Cardiovascular Disease
PROC: B24BZZ4 Ultrasonography of Heart with Aorta, Transesophageal (ICD-10-PCS; principal; 2018-02-06)
DX: I34.0 Nonrheumatic mitral (valve) insufficiency (principal); I51.7 Cardiomegaly; I10 Essential (primary) hypertension; E78.5 Hyperlipidemia, unspecified; E11.9 Type 2 diabetes mellitus without complications; Z87.891 Personal history of nicotine dependence; I45.10 Unspecified right bundle-branch block; Z79.82 Long term (current) use of aspirin; Z79.84 Long term (current) use of oral hypoglycemic drugs
CPT/HCPCS: 82948; 85027; 93312; 93325